=== PATIENT | female | born 1955 | race Caucasian/White ===

== ENCOUNTER 2019-09-17 13:50 | Outpatient (CLI) | payer BC, SELFPAY ==
--- NOTE | 2019-09-17 14:23 | XRR_ITS ---
PROCEDURE INFORMATION: Exam: XR Left Foot Exam date and time: 09/17/2019 2:35 PM Age: 64 years old Clinical indication: Patient HX: Left heel pain after stepping on electrical cord; Additional info: Left foot pain TECHNIQUE: Imaging protocol: XR Left foot. Views: 1 or 2 views. COMPARISON: No relevant prior studies available. FINDINGS: Bones/joints: There is no evidence for acute fracture or malalignment. Soft tissues: Normal. XR/XR foot LT 2V [id number] IMPRESSION: No acute findings.
== END 2019-09-17 13:51 | disposition home or self-care (01) ==
PROVIDERS: Family Provider Family Medicine; PCP Family Medicine; Visit Provider Registered Nurse
DX: M79.672 Pain in left foot (principal)
CPT/HCPCS: 73620